=== PATIENT | female | born 1960 | race Caucasian/White ===

== ENCOUNTER 2020-06-14 08:30 | Outpatient (CLI) | payer OTHER, SELFPAY ==
--- NOTE | ~2020-06-14 | MM_ITS ---
EXAMINATION: MM screening shaggy BI w emily HISTORY: Screening mammogram TECHNIQUE: Craniocaudal and mediolateral oblique 3-D tomosynthesis images were obtained and synthetic 2-D images were generated. CAD analysis was submitted and interpreted. COMPARISON: 06/03/2019 bilateral digital screening mammogram 07/08/2018 postbiopsy diagnostic right mammogram following ultrasound-guided biopsy 07/01/2018 postbiopsy mammograms following stereotactic biopsy 06/13/2018 diagnostic bilateral digital mammogram and limited right breast ultrasound 05/30/2018 bilateral digital screening mammogram BREAST PARENCHYMAL COMPOSITION: There are scattered areas of fibroglandular density. FINDINGS: History of prior bilateral benign breast biopsies. There are scattered bilateral benign calcifications. There is no evidence of suspicious mass, calcifi cation, or architectural distortion to suggest malignancy in either breast. There has been no suspici ous interval change. IMPRESSION: 1. No mammographic evidence of malignancy. 2. Recommend routine screening mammography in one year. BI-RADS Category 2: Benign finding(s). Reviewed, dictated and finalized at location A. L CONTROL WORKER
== END 2020-06-14 08:31 | disposition home or self-care (01) ==
PROVIDERS: Visit Provider Family Medicine Sports Medicine
DX: Z12.31 Encounter for screening mammogram for malignant neoplasm of breast (principal)
CPT/HCPCS: 77063; 77067

== ENCOUNTER 2021-08-04 15:39 | Outpatient (CLI) | payer OTHER, SELFPAY ==
--- NOTE | ~2021-08-04 | MM_ITS ---
EXAMINATION: MM screening shaggy BI w emily HISTORY: Screening TECHNIQUE: Craniocaudal and mediolateral oblique 3-D tomosynthesis images were obtained and synthetic 2-D images were generated. CAD analysis was submitted and interpreted. COMPARISON: Comparison to multiple prior studies sequentially, with oldest reviewed study dated 07/08. BREAST PARENCHYMAL COMPOSITION: There are scattered areas of fibroglandular density. FINDINGS: There are developing calcifications adjacent to tissue marker in the mid outer aspect of th e left breast corresponding to an area of previous benign biopsy. The right breast is stable without evidence for malignancy. IMPRESSION: 1. Developing left breast calcifications. 2. Magnification views are recommended. BI-RADS Category 0: Incomplete: Needs additional imaging evaluation. Reviewed, dictated and finalized at location A. RINTENDENT CONSTRUCTION
== END 2021-08-04 15:40 | disposition home or self-care (01) ==
LOC: ANHIMG 15:43
PROVIDERS: PCP Family Medicine Sports Medicine; Visit Provider Family Medicine Sports Medicine
DX: Z12.31 Encounter for screening mammogram for malignant neoplasm of breast (principal); R92.8 Other abnormal and inconclusive findings on diagnostic imaging of breast
CPT/HCPCS: 77063; 77067

== ENCOUNTER 2021-08-18 12:59 | Outpatient (CLI) | payer OTHER, SELFPAY ==
--- NOTE | ~2021-08-18 | MM_ITS ---
EXAMINATION: MM diagnostic shaggy LT w emily HISTORY: Developing left breast calcifications reported on screening mammogram TECHNIQUE: Additional 3-D ML tomosynthesis images of the left breast were performed and synthetic 2-D images were generated. ML and CC magnification views CAD analysis was submitted and interpreted. COMPARISON: 08/04/2021 bilateral digital screening mammogram FINDINGS: There are amorphous calcifications at the site or a prior biopsy with biopsy marker, likely calcifications of fibroadenoma; recommend correlation with prior biopsy report. No malignant calcification is detected. IMPRESSION: 1. Benign calcifications 2. Routine annual mammographic examination is recommended. BI-RADS Category 2: Benign finding(s). Reviewed, dictated and finalized at location A. ICATIONS EDITOR
== END 2021-08-18 13:00 | disposition home or self-care (01) ==
PROVIDERS: PCP Family Medicine Sports Medicine; Visit Provider Family Medicine Sports Medicine
DX: R92.8 Other abnormal and inconclusive findings on diagnostic imaging of breast (principal)
CPT/HCPCS: 77061; 77065; G0279

== ENCOUNTER → 2022-08-08 09:31 | Outpatient (CLI) | payer OTHER, SELFPAY ==
--- NOTE | ~2022-08-08 | US_ITS ---
US thyroid INDICATION: Thyroid goiter TECHNIQUE: Real-time sonographic images of the thyroid gland were obtained. COMPARISON: No prior studies for comparison. FINDINGS: The right thyroid lobe measures 4.5 x 1.3 x 1.4 cm. The left thyroid lobe measures 3.3 x 1 .2 x 1.1 cm. There is heterogeneous echotexture and echogenicity throughout the thyroid gland. No dis crete nodules identified. Normal vascular flow is present. IMPRESSION: 1. Unremarkable thyroid without discrete nodule or abnormal vascularity. Reviewed, dictated and finalized at location A. EL KEEPER
== END ==
PROVIDERS: PCP Family Medicine; Visit Provider Family Medicine
DX: E04.1 Nontoxic single thyroid nodule (principal)
CPT/HCPCS: 76536

== ENCOUNTER 2022-09-27 14:42 | Outpatient (CLI) | payer OTHER, SELFPAY ==
--- NOTE | ~2022-09-27 | MM_ITS ---
EXAMINATION: MM screening [facility] BI w emily HISTORY: Screening TECHNIQUE: Craniocaudal and mediolateral oblique 3-D tomosynthesis images were obtained and synthetic 2-D images were generated. CAD analysis was submitted and interpreted. COMPARISON: Comparison to multiple prior studies sequentially, with oldest reviewed study dated 05/24. BREAST PARENCHYMAL COMPOSITION: There are scattered areas of fibroglandular density. FINDINGS: There is no evidence of suspicious mass, calcification, or architectural distortion to sugg est malignancy in either breast. There has been no suspicious interval change. IMPRESSION: 1. No mammographic evidence of malignancy. 2. Recommend routine screening mammography in one year. BI-RADS Category 1: Negative Reviewed, dictated and finalized at location A.
== END 2022-09-27 14:43 | disposition home or self-care (01) ==
LOC: ANHIMG 14:43
PROVIDERS: PCP Family Medicine; Visit Provider Family Medicine
DX: Z12.31 Encounter for screening mammogram for malignant neoplasm of breast (principal)
CPT/HCPCS: 77063; 77067

== ENCOUNTER 2023-05-10 13:31 | Outpatient (CLI) | payer OTHER, SELFPAY ==
--- NOTE | ~2023-05-10 | DEXA_ITS ---
Bone Density Report Name: ELEUTERIO WHITE Age: 63 Sex: Female Ethnicity: White Date of : 1960 Indication: postmenopausal; screening for osteoporosis; hysterectomy; Referring Provider: MARY GARCIA Study: Bone densitometry was performed. Exam Date: May 10, 2023 Accession number: [id number] Bone Density: Region BMD T-score Z-score Classification AP Spine(L1-L4) 0.904 -1.3 0.3 Osteopenia Femoral Neck (Left) 0.609 -2.2 -0.7 Osteopenia Total Hip (Left) 0.948 0.1 1.2 Normal Femoral Neck (Right) 0.638 -1.9 -0.5 Osteopenia Total Hip (Right) 0.927 -0.1 1.0 Normal Total Hip Mean 0.938 0.0 1.1 Normal World Health Organization criteria for BMD impression classify patients as: Normal (T-score at or above -1.0), Osteopenia (T-score between -1.0 and -2.5), or Osteoporosis (T-score at or below -2.5). 10-year Fracture Risk(1): Major Osteoporotic Fracture 9.8% Hip Fracture 1.4% Reported Risk Factors: [place] (), Neck BMD=0.609, BMI=37.2 (1) FRAX(R) Version 3.08. Fracture probability calculated for an untreated patient. Fracture probability may be lower if the patient has received treatment. Clinical Information Provided by Patient: Has used the following medications: Vitamin D Has the following medical conditions: Hysterectomy Patient maximum height was 62 Menopause Age: 50 No regular weight bearing exercise Drinks caffeinated beverages Onset of menses at age 14 Number of children 1 Missed period for more than 6 months in a row Impression: The patient has low bone mass, based on the Left Femoral Neck T-score. The patient has an estimated ten-year risk of hip fracture of 1.4% and an estimated ten-year risk of major fracture of 9.8%, based on the WHO FRAX algorithm. Discussion: BONE DENSITY IS LOW AT ONE OR MORE SKELETAL SITES. This patient's lowest T-score is low at one or more skeletal sites. It meets the World Health Organization's (WHO) criteria for ?low bone mass? (T-score between -1.0 and -2.5). The patient's 10-year risk of fracture as calculated by FRAX is less than the threshold where pharmacological therapy is recommended by the National Osteoporosis Foundation (NOF). However, all treatment decisions require clinical judgment and consideration of individual patient factors, including patient preferences, comorbidities, previous drug use, risk factors not captured in the FRAX model (e.g., frailty, falls, vitamin D deficiency, increased bone turnover, interval significant decline in bone density) and possible under or overestimation of fracture risk by FRAX. The patient should follow a healthful lifestyle (good nutrition with adequate calcium and vitamin D, and appropriate weight-bearing exercise). Follow-Up: Consider repeating this study in 2 to 3 years to sandip
== END 2023-05-10 13:32 | disposition home or self-care (01) ==
LOC: ANHIMG 13:38
PROVIDERS: PCP Family Medicine; Visit Provider Family Medicine
DX: Z78.0 Asymptomatic menopausal state (principal); M85.88 Other specified disorders of bone density and structure, other site; M85.852 Other specified disorders of bone density and structure, left thigh; M85.851 Other specified disorders of bone density and structure, right thigh
CPT/HCPCS: 77080

== ENCOUNTER 2023-09-30 15:25 | Outpatient (CLI) | payer OTHER, SELFPAY ==
--- NOTE | ~2023-09-30 | MM_ITS ---
EXAMINATION: MM screening shaggy BI w emily HISTORY: Screening mammogram TECHNIQUE: Craniocaudal and mediolateral oblique 3-D tomosynthesis images were obtained and synthetic 2-D images were generated. CAD analysis was submitted and interpreted. COMPARISON: September 27, 2021 bilateral screening mammogram August 18, 2021 diagnostic left mammogram August 04, 2021 bilateral screening mammogram BREAST PARENCHYMAL COMPOSITION: There are scattered areas of fibroglandular density. FINDINGS: Bilateral biopsy markers are noted; history of prior bilateral benign breast biopsies. Scattered numerous bilateral benign calcifications are noted. Approximately 3-4 mm small new relatively dense opacities noted in the posterior lower outer left shobha ast. Diagnostic left mammogram is recommended, with ultrasound if required. Otherwise there is no evidence of suspicious mass, calcification, or architectural distortion to sugg est malignancy in either breast. There has been no other suspicious interval change. IMPRESSION: 1. Suspected new 3 to 4 mm mass in the posterior lower outer left breast 2. Diagnostic left mammogram is recommended, with ultrasound if required BI-RADS Category 0: Incomplete: Needs additional imaging evaluation. Reviewed, dictated and finalized at location B.
== END 2023-09-30 15:26 | disposition home or self-care (01) ==
LOC: ANHIMG 15:27
PROVIDERS: PCP Family Medicine; Visit Provider Family Medicine
DX: Z12.31 Encounter for screening mammogram for malignant neoplasm of breast (principal); R92.8 Other abnormal and inconclusive findings on diagnostic imaging of breast
CPT/HCPCS: 77063; 77067

== ENCOUNTER 2023-11-04 12:45 | Outpatient (CLI) | payer OTHER, SELFPAY ==
--- NOTE | ~2023-11-04 | MMUS_ITS ---
EXAMINATION: MM diagnostic hsaggy LT w emily, US breast LT limited HISTORY: Suspected new 3-4 mm mass in the posterior lower outer left breast on 09/30/2023 bilateral scr eening mammogram TECHNIQUE: Additional 3-D tomosynthesis images of the left breast were performed and synthetic 2-D im ages were generated. CAD analysis was submitted and interpreted. High resolution lower outer quadrant left breast ultrasound was performed. COMPARISON: Serial screening and diagnostic mammograms dating back to 06/03/2019 FINDINGS: MAMMOGRAPHIC FINDINGS: There is a circumscribed approximately 7.5 x 13 mm opacity in the left lateral subareolar area which appears stable back to 07/01/2018. The circumscribed margins and lack of significant change since 2019 favor benign diagnosis. No suspicious mass of the left breast is noted otherwise. ULTRASOUND: 3:00 subareolar area: Well-circumscribed hypoechoic solid lesion measuring approximate 4.9 x 15 x 13.6 mm, corresponding to a circumscribed cyst mammographic opacity which is stable since 2019. The circumscribed margins and lack of significant change since 2019 favor benign diagnosis. No suspicious mass or shadowing or cyst or other similar finding is noted in the upper outer quadrant of the left breast otherwise. IMPRESSION: 1. Benign finding; no mammographic or sonographic evidence of malignancy 2. Routine annual mammographic screening is recommended BI-RADS Category 2: Benign finding(s). Reviewed, dictated and finalized at location A. IMPRESSION: 1. Benign finding; no mammographic or sonographic evidence of malignancy 2. Routine annual mammographic screening is recommended BI-RADS Category 2: Benign finding(s).
== END 2023-11-04 12:46 | disposition home or self-care (01) ==
LOC: ANHIMG 12:50
PROVIDERS: PCP Family Medicine; Visit Provider Family Medicine
DX: R92.8 Other abnormal and inconclusive findings on diagnostic imaging of breast (principal)
CPT/HCPCS: 76642; 77061; 77065; G0279

== ENCOUNTER 2024-11-26 08:40 | Outpatient (CLI) | payer OTHER, SELFPAY ==
--- NOTE | ~2024-11-26 | MM_ITS ---
EXAMINATION: MM screening shaggy BI w emily HISTORY: Screening mammogram History of prior bilateral benign breast biopsies. TECHNIQUE: Craniocaudal and mediolateral oblique 3-D tomosynthesis images were obtained and synthetic 2-D images were generated. CAD analysis was submitted and interpreted. COMPARISON: 09/30/2023 through 06/03/2019 BREAST PARENCHYMAL COMPOSITION: There are scattered areas of fibroglandular density. FINDINGS: There are scattered bilateral benign calcifications. There is no evidence of suspicious mass, calcifi cation, or architectural distortion to suggest malignancy in either breast. There has been no suspici ous interval change. IMPRESSION: 1. No mammographic evidence of malignancy. 2. Recommend routine screening mammography in one year. BI-RADS Category 2: Benign finding(s). Reviewed, dictated and finalized at location []
--- OUTSIDE RECORDS SUMMARY | 2024-11-26 08:52 | XMS_ITS | Clinical Summary ---
Author Organization [facility] Address [address] [place] [address] Care Team Providers Care Chemical Tank Worker Name Role Phone Elpidio Jenkins MD Primary Care Provider [phone] Source Comments [facility],non-owned Affiliates and Associated Physician Practices is amultiple site organization consisting of ambulatory clinics and hospital sitesin [place], [place], [place] and [place]. This disclosure is being madepursuant to the Care Everywhere program and may not contain all information available regarding this patient. Last updated 18.[facility] Allergies Active Allergy Reactions Criticality Noted Date Comments Augmentin GI Discomfort 05/19/2016 Medications * Be aware that medications may not be up to date on this document. Alwaysverify current medications with the patient. LOSARTAN POTASSIUM PO Active Pitavastatin Calcium (LIVALO PO) Active fluticasone propionate (FLONASE) 50 MCG/ACT nasal spray [place] 1 [place] into each nostril 2 times daily 1 Bottle 1 05/19/2016 Active Social History Tobacco Use Types Packs/Day Years Used Date Smoking Tobacco: Never Comments Unknown Sex and Gender Information Value Date Recorded Sex Assigned at Not on file Legal Sex Female 8:36 PM FELT HAT STEAMER Gender Identity Not on file Sexual Orientation Not on file Last Filed Vital Signs Vital Sign Reading Time Taken Comments Blood Pressure 128/85 05/19/2016 10:25 AM FELT HAT STEAMER Pulse 92 05/19/2016 10:25 AM FELT HAT STEAMER Temperature 37.2 C (99 F) 05/19/2016 10:25 AM FELT HAT STEAMER Respiratory Rate 16 05/19/2016 10:25 AM FELT HAT STEAMER Oxygen Saturation 97% 05/19/2016 10:25 AM FELT HAT STEAMER Inhaled Oxygen Concentration - - Weight 97.5 kg (215 lb) 05/19/2016 10:25 AM FELT HAT STEAMER Height 157.5 cm (5' 2) 05/19/2016 10:25 AM FELT HAT STEAMER Body Mass Index 39.32 05/19/2016 10:25 AM FELT HAT STEAMER Plan of Treatment Health Maintenance Due Date Last Done Comments COLOGUARD (AGES 45-75) - COL ON CA SCREENING 1960 COLON MONITORING 1960 COLONOSCOPY - COLON CA SCREENING 1960 CT COLONOGRAPHY - COLON CA SCREENING 1960 Colorectal Cancer Screening 1960 FIT - COLON CA SCREENING 1960 FLEX SIG - COLON CA SCREENING 1960 MAMMOGRAM 1960 HIV SCREENING 1975 HEPATITIS C SCREENING 03/13/1978 DTAP/TDAP/TD VACCINES (1 - Tdap) 1979 PNEUMOCOCCAL VACCINE 50+ (1 of 1 - PCV) 2010 ZOSTER VACCINE (1 of 2) 2010 COVID-19 VACCINE (1 - 2023-2 5 season) 2024 DEPRESSION SCREENING 06/24/2024 INFLUENZA VACCINE (Season Ended) 2025 Respiratory Syncytial Virus (RSV) Vaccine Pt: or over 60 yrs (1 - 1-dose 75+ series) 2035 HEPATITIS B VACCINE Aged Out No longe r eligible based on patient's age to complete this topic HIB VACCINE Aged Out No longer eligi ble based on patient's age to complete this topic HPV VACCINE Aged Out No longer eligi ble based on patient's age to complete this topic MENINGOCOCCAL (Group B) VACC INE SHARED DECISION-MAKING Aged Out No longer eligibl e based on patient's age to complete this topic MENINGOCOCCAL GROUPS A/C/Y/W VACCINE Aged Out No longer eligible b ased on patient's age to complete this topic Insurance [place] [place] [address] Care Teams Chemical Tank Worker Relationship Specialty Start Date End Date Elpidio Jenkins MD [address] [place] [id number] PCP - General Family Medicine 05/19/16
--- OUTSIDE RECORDS SUMMARY | 2024-11-26 08:52 | XMS_ITS | Clinical Summary ---
Author Organization [facility] Address [address] [place] [address] Care Team Providers Care Construction Electrician Name Role Phone Elpidio Jenkins MD Primary Care Provider [phone] Allergies No known active allergies Medications losartan-hydroC HLOROthiazide (HYZAAR) 100-12.5 mg tablet TAKE 1 TABLET BY MOUTH EVERY DAY 4 06/03/2018 Active metoprolol succinate (TOPROL XL) 50 mg Extended Release 24 hour tablet Take 50 mg by mouth daily at bedtime. 4 06/03/2018 Active LIVALO 2 mg Tablet TAKE 1 TABLET BY MOUTH EVERY DAY 4 06/04/2018 Active aspirin (ECOTRIN EC) 81 mg Tablet, Delayed Release (E.C.) Take 81 mg by mouth daily. Active zolpidem (AMBIEN) 5 mg tablet nightly as needed . 0 05/19/2018 Active ALPRAZolam (XANAX) 0.25 mg tablet TAKE 1/2 TO 1 TABLET BY MOUTH TWICE A DAY NEEDED 0 06/30/2018 Active semaglutide (Ozempic) 0.25 mg or 0.5 mg (2 mg/3 mL) Pen Injector INJECT 0.5 MG UNDER THE SKIN ONCE WEEKLY 3 mL 2 10/29/2024 6:20 PM CDT 09/08/2024 Active Active Problems Problem Noted Date Diagnosed Date Morbid obesity with body mass index of 40.0-49.9 10/17/2018 Duct ectasia of breast, right 10/17/2018 Traumatic hematoma of female breast 10/17/2018 Fibroadenoma, left 07/08/2018 Mammographic microcalcificat ion found on diagnostic imaging of breast 06/25/2018 Resolved Problems Problem Noted Date Diagnosed Date Resolved Date Abnormal mammogram of both breasts 06/25/2018 10/17/2018 Abnormal ultrasound of breast 06/25/2018 10/17/2018 Encounters Date Type Department Care Team Description 11/17/2024 External Device Data [facility] ABSTRACTION Provider, Abstract 11/10/2024 External Device Data [facility] ABSTRACTION Provider, Abstract 09/09/2024 External Device Data [facility] ABSTRACTION Provider, Abstract 09/01/2024 External Device Data [facility] ABSTRACTION Provider, Abstract 09/01/2024 External Device Data [facility] ABSTRACTION Provider, Abstract 08/29/2024 External Device Data [facility] ABSTRACTION Provider, Abstract 08/28/2024 External Device Data [facility] ABSTRACTION Provider, Abstract from Last 3 Months Social History Tobacco Use Types Packs/Day Years Used Date Smoking Tobacco: Never Smokeless Tobacco: Never Alcohol Use Standard Drinks/Week Comments Yes 0 (1 standard drink = 0.6 oz pur e alcohol) Comments No Sex and Gender Information Value Date Recorded Sex Assigned at Not on file Legal Sex Female 11:10 AM READING COACH Gender Identity Not on file Sexual Orientation Not on file Last Filed Vital Signs Vital Sign Reading Time Taken Comments Blood Pressure 156/80 01/16/2019 9:59 AM CDT Pulse 63 10/17/2018 9:23 AM CDT Temperature 36.8 C (98.3 F) 01/16/2019 9:59 AM CDT Respiratory Rate - - Oxygen Saturation 98% 01/16/2019 9:59 AM CDT Inhaled Oxygen Concentration - - Weight 108 kg (238 lb 3.2 oz) 01/16/2019 9:59 AM CDT Height 157.5 cm (5' 2) 01/16/2019 9:59 AM CDT Body Mass Index 43.57 01/16/2019 9:59 AM CDT Plan of Treatment Health Maintenance Due Date Last Done Comments Pre-Diabetes and Diabetes Screening 1960 DTAP/TDAP/TD VACCINES (1 - Tdap) 1979 HPV/Cotest (21-29) 1981 CERVICAL CANCER SCREENING 1990 HPV/Cotest (30-65) 1990 PAP SMEAR 1990 COLORECTAL SCREENING 2005 Colorectal Cancer Screening 2005 FIT-DNA Q 3 years 2005 FIT/FOBT Q 1 year 2005 Flex Sig/CT Colonography Q 5 years 2005 ZOSTER VACCINE (1 of 2) 2010 BREAST CANCER SCREENING 05/30/2019 05/30/2018, 05/25 RSV VACCINE (60+ or ) (1 - Risk 60-74 years 1-dose series) 2020 INFLUENZA VACCINE (#1) 2024 Procedures Procedure Name Priority Date/Time Associated Diagnosis Comments MAMMO SCREENING BILAT Routine 05/30/2018 from Last 3 Months or Most Recently Relevant to Health Maintenance Results * MAMMO SCREENING BILAT (05/30/2018) Anatomical Region Laterality Modality Breast Bilateral Mammography us Abstract Provider MAMMO ORDERABLES Final Result from Last 3 Months or Most Recently Relevant to Health Maintenance Insurance [employer] CHOICE POS II Care Teams Construction Electrician Relationship Specialty Start Date End Date Elpidio Jenkins MD [address] [place] [phone] PCP - General Family Practice 06/19/18
== END 2024-11-26 08:41 | disposition home or self-care (01) ==
PROVIDERS: PCP Family Medicine; Visit Provider Family Medicine
DX: Z12.31 Encounter for screening mammogram for malignant neoplasm of breast (principal)
CPT/HCPCS: 77063; 77067